=== PATIENT | male | born 1970 | race Caucasian/White ===

== ENCOUNTER 2020-08-25 10:04 | Emergency (ER) | payer OTHER | END 2020-08-25 13:11 | disposition home or self-care (01) | LOC: ER1 10:04 | DX: S92.415A Nondisplaced fracture of proximal phalanx of left great toe, initial encounter for closed fracture (principal); E10.9 Type 1 diabetes mellitus without complications; I10 Essential (primary) hypertension; Z79.899 Other long term (current) drug therapy; W23.0XXA Caught, crushed, jammed, or pinched between moving objects, initial encounter; Y92.89 Other specified places as the place of occurrence of the external cause; Y99.0 Civilian activity done for income or pay | CPT/HCPCS: 73610; 73630; 99283 ==

== ENCOUNTER → 2020-09-06 | Outpatient (CLI) | payer BC | LOC: KOH-I 11:12 | DX: S92.412D Displaced fracture of proximal phalanx of left great toe, subsequent encounter for fracture with routine healing (principal); M79.89 Other specified soft tissue disorders; X58.XXXD Exposure to other specified factors, subsequent encounter | CPT/HCPCS: 73630 ==